=== PATIENT | female | born 1975 | race Caucasian/White ===

== ENCOUNTER 2020-05-16 08:58 | Emergency (ER) | payer MEDICAID ==
[~2020-05-16] VITALS: Ht 152.4 cm; Wt 69.4 kg
[2020-05-16 09:36] VITALS: Ht 152.4 cm; Wt 69.4 kg
[2020-05-16 10:38] LABS: BASOPHIL % 2.5 % (0-2); PLATELET COUNT 469 x10^3mcL (130-400); RED CELL DISTRIBUTION WIDTH 21.2 % (11.5-14.5)
[2020-05-16 10:39] LABS: CALCIUM 8.2 mg/dL (8.5-10.1); CARBON DIOXIDE 28.9 mmol/L (21-32); CHLORIDE SERUM 101 mmol/L (98-107); CREATININE SERUM 0.8 mg/dL (0.6-1.0); GFR1 > 60 mL/min; GLUCOSE SERUM 101 mg/dL (74-106); POTASSIUM SERUM 3.2 mmol/L (3.5-5.1); SODIUM SERUM 139 mmol/L (136-145); rbc morphology (normal/abnorm) ABNORMAL (NORMAL)
[2020-05-16 10:46] LABS: UA SPECIFIC GRAVITY 1.025 (1.005-1.035); microscopic required? YES; urine erythrocyte TRACE (NEGATIVE)
[2020-05-16 10:51] LABS: ALKALINE PHOSPHATASE 196 U/L (46-116); ALT/SGPT 48 U/L (14-59); AST/SGOT 148 U/L (15-37); BILIRUBIN TOTAL 1.15 mg/dL (0.20-1.00); CHOLESTEROL 198 mg/dL (<200); LIPASE 101 IU/L (73-393); TOTAL PROTEIN, SERUM 7.8 g/dL (6.4-8.2)
[2020-05-16 10:52] LABS: ALBUMIN 2.8 g/dL (3.4-5.0); HDL CHOLESTEROL 17 mg/dL (40-60); T4(THYROXINE) 4.3 ug/dL (4.7-13.3)
[2020-05-16 10:57] LABS: AMPHETAMINE QUAL UR NONE DETECTED (See below)
[2020-05-16 14:50] VITALS: BP 125/96
== END 2020-05-16 14:50 | disposition home or self-care (01) ==
LOC: ED 08:58
PROVIDERS: Emergency Medicine
DX: D64.9 Anemia, unspecified (principal); R11.2 Nausea with vomiting, unspecified; R74.0 Nonspecific elevation of levels of transaminase and lactic acid dehydrogenase [LDH]; Z98.51 Tubal ligation status; Z98.890 Other specified postprocedural states
CPT/HCPCS: Q0092; Q0162